=== PATIENT | female | born 1945 | race African-American/Black ===

== ENCOUNTER → 2017-01-02 | Outpatient (CLI) | payer MEDICARE, MEDICAID ==
[~2017-01-02] MED LIST: ALLO100T57; ATOR10TA69; COR3; DOCU250C75; LOSA50TA20; [UNRECOGNIZED DRUG - CODE]; [UNRECOGNIZED DRUG - REMARK]
== END | disposition home or self-care (01) ==
LOC: MAMMO 09:22
PROVIDERS: ATTEND Internal Medicine Hematology & Oncology
DX: Z12.31 Encounter for screening mammogram for malignant neoplasm of breast (principal); C50.411 Malignant neoplasm of upper-outer quadrant of right female breast; M85.80 Other specified disorders of bone density and structure, unspecified site; M81.0 Age-related osteoporosis without current pathological fracture
CPT/HCPCS: 77080; G0202

== ENCOUNTER → 2017-08-23 | Outpatient (CLI) | payer MEDICARE, MEDICAID ==
[~2017-08-23] MED LIST changes: +DOCU250C14; -DOCU250C75; +LORA-985; -[UNRECOGNIZED DRUG - CODE]
[2017-08-23 13:39] LABS: HEMATOCRIT. 40.8 % (36.0-48.0); MEAN CORPUSCULAR HEMOGLOBIN 26.3 pg (28.0-32.0); MEAN CORPUSCULAR VOLUME 82.7 fL (81.0-99.0); MEAN PLATELET VOLUME 9.9 fl (7.4-10.4); PLATELET 160 x1000/uL (130-400); RED BLOOD CELL COUNT 4.93 mill/uL (4.2-5.4); RED CELL DISTRIBUTION WIDTH 19.3 % (11.6-14.6)
[2017-08-23 13:41] LABS: INR 1.1; PARTIAL THROMBOPLASTIN TIME 25.6 sec (23.4-31.0); PROTHROMBIN TIME 11.5 sec (9.4-11.6)
[2017-08-23 13:53] LABS: CHLORIDE 94 mEq/L (98-107)
[2017-08-24 14:35] LABS: PLATELET ESTIMATE NORMAL
== END | disposition home or self-care (01) ==
LOC: LAB 13:03
DX: M54.16 Radiculopathy, lumbar region (principal); R27.0 Ataxia, unspecified; Z79.01 Long term (current) use of anticoagulants
CPT/HCPCS: 36415; 80053; 85025; 85610; 85730

== ENCOUNTER → 2018-01-02 | Outpatient (CLI) | payer MEDICARE, MEDICAID ==
[~2018-01-02] MED LIST changes: +ASPI-1159 PO; +B CO1TAB7 PO; +BUME2TAB3 PO; +CARB1DRO6 OP; +CYCL30DR OP; +DOCU-150 PO; -DOCU250C14; +ESOM40CA PO; +GABA-290 PO; +INSU100I28 SQ; +INSU100I7 SQ; +KDUR10 PO; -LORA-985; -LOSA50TA20; +SACU1TAB7 PO; +SPIR25TA4 PO
== END | disposition home or self-care (01) ==
LOC: MAMMO 10:29
PROVIDERS: ATTEND Internal Medicine Hematology & Oncology
DX: Z12.31 Encounter for screening mammogram for malignant neoplasm of breast (principal)
CPT/HCPCS: 77067